=== PATIENT | male | born 1980 | race Caucasian/White ===

== ENCOUNTER → 2016-05-07 | Outpatient (CLI) | payer BC ==
--- NOTE | 2016-05-08 09:27 | RADIOLOGY REPORT PS360 ---
CT CHEST W/ CONTRAST INDICATION: EDEMA, ENLARGED LYMPH NODE, abnormal chest x-ray COMPARISON: None TECHNIQUE: Axial images are obtained with contrast. Sagittal and coronal reformatted images are reviewed as well. FINDINGS: There are enlarged lymph nodes in the mediastinum and both hilar regions. Subcarinal adenopathy is noted with smiley area measuring 3. Expiratory 2.2 cm. Right hilar nodes are enlarged measuring up to 2.4 cm. Left hilar nodes are enlarged measuring up to 2.8 x 1.7 cm. Small nodes are present anterior to the lower esophageal segment. No lobar consolidation or collapse is evident. No suspicious pulmonary nodules or effusions. There is a 5 mm noncalcified nodule along the major fissure on the left superiorly. There are minimal atelectatic or fibrotic changes in the left lung base. No axillary adenopathy. No acute bony anomalies. Upper abdominal images show diffuse hepatic steatosis. Otherwise unremarkable. IMPRESSION: 1. Moderate mediastinal and bilateral hilar adenopathy. Differential diagnosis includes lymphoma, sarcoidosis, metastatic disease, or reactive adenopathy.. 2. 5 mm fissural nodule left upper lobe probably benign
== END ==
LOC: RAD 11:56
DX: R60.9 Edema, unspecified (principal); R59.9 Enlarged lymph nodes, unspecified
CPT/HCPCS: Q9967